=== PATIENT | male | born 1955 | race African-American/Black ===

== ENCOUNTER 2022-05-14 09:08 | Emergency (ER) | payer MEDICAID ==
[~2022-05-14] VITALS: Ht 182.9 cm; Wt 84.0 kg
[2022-05-14] MEDS ORDERED: IBUPROFEN 600MG TABLET PO STA (09:25)
[2022-05-14 09:39] VITALS: BP 131/76
[2022-05-14 09:47] LABS: CLARITY URINE CLEAR (CLEAR); COLOR URINE YELLOW (YELLOW); KETONES URINE NEGATIVE (NEGATIVE); LEUKOCYTE ESTERASE URINE NEGATIVE (NEGATIVE); NITRITE URINE NEGATIVE (NEGATIVE); OCCULT BLOOD URINE NEGATIVE (NEGATIVE); PROTEIN URINE 1+ (NEGATIVE); SPECIFIC GRAVITY URINE 1.032 (1.005-1.030); UROBILINOGEN URINE 0.2 E.U./dL (0.2-1.0)
[2022-05-14 10:03] LABS: BASOPHILS % 0.6 % (0.0-2.0); EOSINOPHILS % 1.6 % (0.0-5.0); HEMATOCRIT. 34.5 % (42.0-52.0); HEMOGLOBIN. 11.6 g/dL (14.0-18.0); LYMPHOCYTES % 20.1 % (20.0-50.0); MEAN CORPUSCULAR HEMOGLOBIN 26.5 pg (28.0-32.0); MEAN CORPUSCULAR VOLUME 78.5 fL (80.0-94.0); MONOCYTES % 9.5 % (2.0-8.0); NEUTROPHILS % 68.2 % (40.0-76.0); PLATELET 373 x1000/uL (130-400); RED CELL DISTRIBUTION WIDTH 14.8 % (11.6-14.6)
[2022-05-14 10:04] LABS: CHLORIDE 111 mEq/L (98-107)
[2022-05-14] MEDS ORDERED: IBUP-2029 MT (10:16)
== END 2022-05-14 11:16 | disposition home or self-care (01) ==
LOC: ER 10:25
DX: R10.9 Unspecified abdominal pain (principal); N20.0 Calculus of kidney; E11.9 Type 2 diabetes mellitus without complications; Z87.442 Personal history of urinary calculi
CPT/HCPCS: 36415; 74176; 80053; 81003; 85025; 99284

== ENCOUNTER 2022-12-10 22:25 | Emergency (ER) | payer MEDICAID ==
[~2022-12-10] VITALS: Ht 185.4 cm; Wt 82.1 kg
[~2022-12-10 22:25] MED LIST: IBUP-2029 MT
[2022-12-10] MEDS ORDERED: ONDANSETRON 4MG ODT PO STA (22:33)
[2022-12-11 00:04] LABS: BASOPHILS % 0.2 % (0.0-2.0); EOSINOPHILS % 0.5 % (0.0-5.0); HEMATOCRIT. 39.5 % (42.0-52.0); HEMOGLOBIN. 13.4 g/dL (14.0-18.0); LYMPHOCYTES % 18.1 % (20.0-50.0); MEAN CORPUSCULAR HEMOGLOBIN 26.8 pg (28.0-32.0); MEAN CORPUSCULAR VOLUME 78.9 fL (80.0-94.0); MEAN PLATELET VOLUME 7.9 fl (7.4-10.4); MONOCYTES % 6.6 % (2.0-8.0); NEUTROPHILS % 74.6 % (40.0-76.0); PLATELET 390 x1000/uL (130-400); RED BLOOD CELL COUNT 5.01 mill/uL (4.7-6.1); RED CELL DISTRIBUTION WIDTH 13.4 % (11.6-14.6)
[2022-12-11 00:05] LABS: CHLORIDE 92 mEq/L (98-107)
[2022-12-11 00:11] LABS: PROTHROMBIN TIME 10.7 sec (9.6-11.0)
[2022-12-11 00:13] LABS: ETHANOL BLOOD < 10 mg/dL
[2022-12-11] MEDS ORDERED: ONDANSETRON 4MG ODT PO NR (01:15)
[2022-12-11] MEDS ORDERED: KETOROLAC 30MG/ML VIAL IM ONE (01:30)
[2022-12-11] MEDS ORDERED: MAGNESIUM/ALUMINUM HYDROXIDE/SIMETHICONE 30ML UDC PO ONE (01:30)
[2022-12-11] MEDS ORDERED: FAMOTIDINE 20MG TABLET PO ONE (01:30)
[2022-12-11 01:48] VITALS: BP 183/98
[2022-12-11 02:54] LABS: CLARITY URINE CLEAR (CLEAR); COLOR URINE DARK YELLOW (YELLOW); KETONES URINE 2+ (NEGATIVE); LEUKOCYTE ESTERASE URINE 1+ (NEGATIVE); NITRITE URINE NEGATIVE (NEGATIVE); OCCULT BLOOD URINE NEGATIVE (NEGATIVE); PH URINE 5.5 (4.5-8.0); PROTEIN URINE 2+ (NEGATIVE); SPECIFIC GRAVITY URINE 1.027 (1.005-1.030); UROBILINOGEN URINE 0.2 E.U./dL (0.2-1.0)
[2022-12-11] MEDS ORDERED: ACETAMINOPHEN 325MG TABLET PO ONE (03:00)
[2022-12-11 03:20] LABS: *AMPHETAMINES SCREEN URINE NEGATIVE (NEGATIVE); *BARBITURATES SCREEN URINE NEGATIVE (NEGATIVE); *BENZODIAZEPINES SCREEN URINE NEGATIVE (NEGATIVE); *COCAINE SCREEN URINE NEGATIVE (NEGATIVE); CANNABINOID URINE SCREEN PRESUMTIVE POSITIVE (NEGATIVE); METHADONE URINE SCREEN NEGATIVE (NEGATIVE); OPIATES URINE SCREEN NEGATIVE (NEGATIVE); PHENCYCLIDINE URINE SCREEN NEGATIVE (NEGATIVE)
== END 2022-12-11 02:57 | disposition left against medical advice (07) ==
LOC: ER 22:25
DX: R19.7 Diarrhea, unspecified (principal); E11.9 Type 2 diabetes mellitus without complications; E78.00 Pure hypercholesterolemia, unspecified; Z53.21 Procedure and treatment not carried out due to patient leaving prior to being seen by health care provider
CPT/HCPCS: 36415; 80053; 80305; 80320; 81003; 83690; 85025; 85610; 96372; 99284; J1885; Q0162; Z7610; G0480